=== PATIENT | female | born 1965 | race Asian ===

== ENCOUNTER 2018-04-03 14:20 | Outpatient (CLI) | payer OTHER ==
--- NOTE | 2018-04-05 09:40 | MMO ---
BILATERAL MAMMOGRAMS: DATE: 04/03/18 HISTORY: Screening mammography. COMPARISON: Multiple exams back to 12/01/06. FINDINGS: Scattered fibroglandular densities. No dominant mass or suspicious calcifications. The study was evaluated with the assistance of computer-aided detection. IMPRESSION: BIRADS 1: Negative Suggest routine follow-up. POS: [facility]
== END 2018-04-03 14:21 | disposition home or self-care (01) ==
LOC: SCSMAMMO 14:20
PROVIDERS: ATTEND Obstetrics & Gynecology
DX: Z12.31 Encounter for screening mammogram for malignant neoplasm of breast (principal)
CPT/HCPCS: 77067